=== PATIENT | female | born 1960 | race American Indian/Alaskan Native ===

== ENCOUNTER 2017-02-18 10:42 | Outpatient (CLI) | payer MEDICARE | END 2017-02-18 10:43 | disposition home or self-care (01) | LOC: WOUND 10:42 | PROVIDERS: ATTEND Podiatrist | DX: S31.109D Unspecified open wound of abdominal wall, unspecified quadrant without penetration into peritoneal cavity, subsequent encounter (principal); E66.9 Obesity, unspecified; L30.4 Erythema intertrigo; I10 Essential (primary) hypertension; Z90.710 Acquired absence of both cervix and uterus; X58.XXXD Exposure to other specified factors, subsequent encounter | CPT/HCPCS: 99214; G0463 ==

== ENCOUNTER 2017-09-19 11:58 | Outpatient (CLI) | payer MEDICARE ==
[2017-09-19 12:21] LABS: Hematocrit 41.2 % (30.3-42.9); Hemoglobin 13.5 gm/dl (10.1-14.3); Mean Corpuscular HGB Conc 33 % (30-34); Mean Corpuscular Hemoglobin 29 pg (28-32); Mean Corpuscular Volume 88 fl (79-97); Platelet Count 245 K/mm3 (140-440); Red Blood Count 4.69 M/mm3 (3.65-5.03); Red Cell Distribution Width 15.4 % (13.2-15.2)
[2017-09-19 12:41] LABS: Alanine Aminotransferase 14 units/L (7-56); Albumin 3.8 g/dL (3.9-5); BUN/Creatinine Ratio 12; Blood Urea Nitrogen 7 mg/dL (7-17); Calcium 9.3 mg/dL (8.4-10.2); Hemolysis Index 4
[2017-09-19 12:48] LABS: Free T4 (Free Thyroxine) 1.17 ng/dL (0.76-1.46)
== END 2017-09-19 11:59 | disposition home or self-care (01) ==
LOC: LAB 11:58
PROVIDERS: ATTEND General Practice
DX: I10 Essential (primary) hypertension (principal); E66.3 Overweight; Z87.891 Personal history of nicotine dependence
CPT/HCPCS: 36415; 80053; 84439; 84443; 85027

== ENCOUNTER 2017-12-13 10:36 | Outpatient (CLI) | payer MEDICARE ==
[2017-12-13] MEDS ORDERED: XYLOCAINE TOPICAL 4% TP ONE (10:45)
[2017-12-13] MEDS ORDERED: XYLOCAINE TOPICAL 2% 30ML TP ONE (10:47)
== END 2017-12-13 10:37 | disposition home or self-care (01) ==
LOC: WOUND 10:36
PROVIDERS: ATTEND Surgery
DX: L89.152 Pressure ulcer of sacral region, stage 2 (principal); L30.4 Erythema intertrigo; E66.9 Obesity, unspecified; I10 Essential (primary) hypertension; Z68.42 Body mass index [BMI] 45.0-49.9, adult; Z90.710 Acquired absence of both cervix and uterus
CPT/HCPCS: 99215; G0463

== ENCOUNTER 2018-01-31 11:17 | Outpatient (CLI) | payer MEDICARE ==
[2018-01-31] MEDS ORDERED: XYLOCAINE TOPICAL 4% TP ONE (12:11)
[2018-02-01] MEDS ORDERED: XYLOCAINE TOPICAL 4% TP ONE (07:44)
== END 2018-01-31 11:18 | disposition home or self-care (01) ==
LOC: WOUND 11:17
PROVIDERS: ATTEND Surgery
DX: L02.211 Cutaneous abscess of abdominal wall (principal); I10 Essential (primary) hypertension; Z90.710 Acquired absence of both cervix and uterus
CPT/HCPCS: 99205; 99215; G0463

== ENCOUNTER 2018-02-09 10:33 | Outpatient (CLI) | payer MEDICARE | END 2018-02-09 10:34 | disposition home or self-care (01) | LOC: WOUND 10:33 | PROVIDERS: ATTEND Surgery | DX: L02.211 Cutaneous abscess of abdominal wall (principal); I10 Essential (primary) hypertension; Z90.710 Acquired absence of both cervix and uterus ==

== ENCOUNTER 2018-02-16 10:39 | Outpatient (CLI) | payer MEDICARE ==
[2018-02-16] MEDS ORDERED: XYLOCAINE TOPICAL 4% TP ONE ×2 (10:48→10:58)
== END 2018-02-16 10:40 | disposition home or self-care (01) ==
LOC: WOUND 10:39
PROVIDERS: ATTEND Surgery
DX: L02.211 Cutaneous abscess of abdominal wall (principal); I10 Essential (primary) hypertension; Z90.710 Acquired absence of both cervix and uterus

== ENCOUNTER 2018-02-23 10:56 | Outpatient (CLI) | payer MEDICARE ==
[2018-02-23] MEDS ORDERED: XYLOCAINE TOPICAL 4% TP ONE ×2 (11:05→11:16)
== END 2018-02-23 10:57 | disposition home or self-care (01) ==
LOC: WOUND 10:56
PROVIDERS: ATTEND Surgery
DX: L02.211 Cutaneous abscess of abdominal wall (principal); I10 Essential (primary) hypertension; Z90.710 Acquired absence of both cervix and uterus

== ENCOUNTER 2019-03-27 15:25 | Outpatient (CLI) | payer MEDICARE ==
--- NOTE | 2019-03-27 16:37 | Ultrasound Report ---
COMPLETE RIGHT BREAST ULTRASOUND HISTORY: History of left breast cancer status post mastectomy. 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 COMPARISON: 04/04/2018 FINDINGS: Complete sonographic evaluation including imaging of the four quadrants and subareolar aspe ct of the right breast demonstrates no solid mass or suspicious shadowing. A densely shadowing calcif ied mass at 9:00 7 cm from the nipple correlates with focal described to be at 8:00 4 cm from the nip ple on the last exam. It measures 7 x 6 x 5 mm compared to 1 cm on the last exam. Several subcentim eter benign cysts versus lymph nodes at 10:00 9 cm from the nipple, 1:00 3 cm from the nipple and at 12:00 5 cm from the nipple. IMPRESSION: No suspicious finding. Benign cysts versus lymph nodes and a benign heavily calcified mas s at 8-9 o'clock. Recommend global breast ultrasound in one year. BIRADS 2: Benign Signer Name: Gavin Clay MD Signed: 03/27/2019 4:33 PM Workstation Name: [id number]
== END 2019-03-27 15:26 | disposition home or self-care (01) ==
LOC: SPVWC 15:25
PROVIDERS: ATTEND Surgery
DX: C50.312 Malignant neoplasm of lower-inner quadrant of left female breast (principal)

== ENCOUNTER 2019-05-06 18:28 | Emergency (ER) | payer MEDICARE ==
[2019-05-06] MEDS ORDERED: IBUPROFEN 800 MG TAB PO ONE (18:58)
[2019-05-06] MEDS ORDERED: oxyCODONE /ACETAMINOPHEN 5-325MG TAB PO ONE (18:58)
--- NOTE | 2019-05-06 20:04 | XRay Report ---
LUMBAR SPINE 2 VIEWS INDICATION / CLINICAL INFORMATION: worsening back pain hx breast CA. COMPARISON: None available. FINDINGS: No fracture is identified. No focal intraosseous lesion is appreciated within limitations of radiogra phy. There is severe narrowing of the L5-S1 intervertebral disc space, while the other visualized dis c spaces are relatively well-preserved. A large anterior disc osteophyte complex is present at the fredy mbosacral junction. There may be mild retrolisthesis of L5 over S1. Otherwise lumbar alignment is unr emarkable. Visualized paraspinal soft tissues are unremarkable. Signer Name: Gregory Calle MD Signed: 05/06/2019 8:00 PM Workstation Name: [id number]
[2019-05-06 20:06] LABS: Basophils % (Auto) 0.4 % (0.0-1.8); Eosinophils % (Auto) 0.5 % (0.0-4.3); Hematocrit 40.5 % (30.3-42.9); Hemoglobin 13.3 gm/dl (10.1-14.3); Lymphocytes # (Auto) 1.1 K/mm3 (1.2-5.4); Lymphocytes % (Auto) 16.9 % (13.4-35.0); Mean Corpuscular HGB Conc 33 % (30-34); Mean Corpuscular Volume 89 fl (79-97); Monocytes # (Auto) 0.4 K/mm3 (0.0-0.8); Monocytes % (Auto) 5.9 % (0.0-7.3); Platelet Count 201 K/mm3 (140-440); Red Blood Count 4.56 M/mm3 (3.65-5.03); Red Cell Distribution Width 16.7 % (13.2-15.2)
[2019-05-06 20:26] LABS: BUN/Creatinine Ratio 13; Blood Urea Nitrogen 8 mg/dL (7-17); Calcium 9.3 mg/dL (8.4-10.2); Hemolysis Index 6
--- NOTE | 2019-05-06 22:58 | Vascular Lab Report ---
DUPLEX DOPPLER LOWER EXTREMITY VEINS, RIGHT INDICATION: Right lower extremity pain. TECHNIQUE: Duplex doppler imaging was performed through the veins of the right lower extremity using venous comp ression and other maneuvers. COMPARISON: No relevant prior imaging study available. FINDINGS: Common Femoral vein: Negative. Superficial Femoral vein: Negative. Popliteal vein: Negative. Calf veins: Negative. Additional findings: None. IMPRESSION: 1. No sonographic evidence for DVT in the right lower extremity. Signer Name: Sunday Moura MD Signed: 05/06/2019 10:53 PM Workstation Name: [id number]
--- NOTE | 2019-05-06 23:27 | Emergency Department Report ---
ED General Adult HPI - General Chief complaint: Back Pain/Injury Stated complaint: BACK PAIN/LEG Time Seen by Provider: 05/06/19 18:50 Source: patient Mode of arrival: Stretcher Limitations: Physical Limitation - History of Present Illness Initial comments: Patient is a 58-year-old female who is presenting with lower back pain and pain in her right lower extremity. Patient has a history of left breast cancer status post mastectomy as well as chronic lower back pain and inability to walk secondary to an accident she had several years ago. Patient has decreased sensation to the left side. Patient has a history of spinal stenosis but does not have a orthopedic physician that she sees currently. Patient states the low back pain is chronic however is worsened over the last 2- 3 days. Patient states the pain is 8 out of 10 in severity. Patient states there is pain in the right lower extremity. She denies any swelling. Patient denies trauma. Patient's motor sensory functions are at baseline. Patient denies urinary retention or fecal incontinence. Patient was seen at [facility] approximately a week ago secondary to a cough and possible bronchitis. Patient states she has improved since that time. Patient states she is eating and drinking well but has a dry mouth. Severity scale (0 -10): 4 - Related Data Home Medications Medication Instructions Recorded Confirmed Last Taken Zolpidem [Ambien] 2 tab PO PRN PRN 11/26/13 07/12/18 01/18/18 amLODIPine [Norvasc] 5 mg PO DAILY 11/26/13 07/12/18 06/14/18 09:00 Previous Rx's Medication Instructions Recorded Last Taken Type HYDROcodone/APAP 7.5-325 [[place] 1 each PO Q6HR PRN #30 tablet 06/22/18 01/23/18 Rx 7.5/325] Sulfamethoxazole/Trimethoprim 1 each PO BID 10 Days #20 tablet 07/13/18 Unknown Rx [Bactrim DS TAB] traMADoL [Ultram] 50 mg PO Q6HR PRN #30 tablet 07/13/18 Unknown Rx Ciprofloxacin HCl [Ciprofloxacin 500 mg PO Q12HR #14 tab 05/06/19 Unknown Rx TAB] HYDROcodone/APAP 5-325 [[place] 1 each PO Q6HR PRN #14 tablet 05/06/19 Unknown Rx 5/325] Ibuprofen [Motrin 600 MG tab] 600 mg PO Q8H PRN #20 tablet 05/06/19 Unknown Rx methOCARBAMOL [Robaxin TAB] 500 mg PO Q6H PRN #14 tablet 05/06/19 Unknown Rx Allergies Allergy/AdvReac Type Severity Reaction Status Date / Time cephalexin monohydrate Allergy Hives Verified 11/26/13 10:25 [From Keflex] ED Review of Systems ROS: Stated complaint: BACK PAIN/LEG Other details as noted in HPI Comment: All other systems reviewed and negative ED Past Medical Hx - Past Medical History Previous Medical History?: Yes Hx Hypertension: Yes (X 1 YR) Hx Diabetes: No Hx Sickle Cell Disease: No (SC TRAIT ONLY) Hx Asthma: No Hx HIV: No - Surgical History Past Surgical History?: Yes Hx Breast Surgery: Yes (LEFT BREAST BX) - Social History Smoking Status: Former Smoker Substance Use Type: None - Medications Home Medications: Home Medications Medication Instructions Recorded Confirmed Last Taken Type Zolpidem [Ambien] 2 tab PO PRN PRN 11/26/13 07/12/18 01/18/18 History amLODIPine [Norvasc] 5 mg PO DAILY 11/26/13 07/12/18 06/14/18 09:00 History HYDROcodone/APAP 7.5-325 [[place] 1 each PO Q6HR PRN #30 tablet 06/22/18 07/12/18 01/23/18 Rx 7.5/325] Sulfamethoxazole/Trimethoprim 1 each PO BID 10 Days #20 tablet 07/13/18 Unknown Rx [Bactrim DS TAB] traMADoL [Ultram] 50 mg PO Q6HR PRN #30 tablet 07/13/18 Unknown Rx Ciprofloxacin HCl [Ciprofloxacin 500 mg PO Q12HR #14 tab 05/06/19 Unknown Rx TAB] HYDROcodone/APAP 5-325 [[place] 1 each PO Q6HR PRN #14 tablet 05/06/19 Unknown Rx 5/325] Ibuprofen [Motrin 600 MG tab] 600 mg PO Q8H PRN #20 tablet 05/06/19 Unknown Rx methOCARBAMOL [Robaxin TAB] 500 mg PO Q6H PRN #14 tablet 05/06/19 Unknown Rx ED Physical Exam - General Limitations: Physical Limitation General appearance: alert, in no apparent distress - Head Head exam: Present: atraumatic, normocephalic - Eye Eye exam: Present: normal appearance, PERRL, EOMI - ENT ENT exam: Present: mucous membranes dry - Neck Neck exam: Present: normal inspection - Respiratory Respiratory exam: Present: normal lung sounds bilaterally. Absent: respiratory distress, wheezes, rales, rhonchi - Cardiovascular Cardiovascular Exam: Present: regular rate, normal rhythm, normal heart sounds. Absent: systolic murmur, diastolic murmur, rubs, gallop - GI/Abdominal GI/Abdominal exam: Present: soft, normal bowel sounds. Absent: distended, tenderness, guarding, rebound - Extremities Exam Extremities exam: Present: normal inspection, tenderness (RLE), calf tenderness - Back Exam Back exam: Present: normal inspection - Neurological Exam Neurological exam: Present: alert, oriented X3 - Psychiatric Psychiatric exam: Present: normal affect, normal mood - Skin Skin exam: Present: warm, dry, intact, normal color. Absent: rash ED Course Vital Signs 05/06/19 05/06/19 05/06/19 19:42 19:55 19:57 Temperature 98.3 F Pulse Rate 114 H Respiratory 22 16 16 Rate Blood Pressure 149/53 Blood Pressure 149/53 [Right] O2 Sat by Pulse 92 Oximetry ED Medical Decision Making - Lab Data Result diagrams: 05/06/19 19:41 05/06/19 19:41 - Radiology Data LUMBAR SPINE 2 VIEWS INDICATION / CLINICAL INFORMATION: worsening back pain hx breast CA. COMPARISON: None available. FINDINGS: No fracture is identified. No focal intraosseous lesion is appreciated within limitations of radiography. There is severe narrowing of the L5-S1 intervertebral disc space, while the other visualized disc spaces are relatively well-preserved. A large anterior disc osteophyte complex is present at the lumbosacral junction. There may be mild retrolisthesis of L5 over S1. Otherwise lumbar alignment is unremarkable. Visualized paraspinal soft tissues are unremarkable. Signer Name: Gregory Calle MD Signed: 05/06/2019 8:00 PM Workstation Name: [id number] DUPLEX DOPPLER LOWER EXTREMITY VEINS, RIGHT INDICATION: Right lower extremity pain. TECHNIQUE: Duplex doppler imaging was performed through the veins of the right lower extremity using venous compression and other maneuvers. COMPARISON: No relevant prior imaging study available. FINDINGS: Common Femoral vein: Negative. Superficial Femoral vein: Negative. Popliteal vein: Negative. Calf veins: Negative. Additional findings: None. IMPRESSION: 1. No sonographic evidence for DVT in the right lower extremity. Signer Name: Sunday Moura MD Signed: 05/06/2019 10:53 PM Workstation Name: [email or web address] - Medical Decision Making Patient is a 58-year-old Female presented with lower back pain is worsened from her baseline as well as right lower extremity pain as far as the patient's right lower extremity pain is most concerned for DVT. Patient is immobile and doesn't history of cancer. DVT studies are negative at this time. Patient had a x-ray of the lumbar spine as well to rule out pathological fracture. X-ray does confirm the patient's spinal stenosis but no acute process seen. Patient clinically does not have cauda equina. Patient urinated before she arrived. She was cathed and very small amounts of urine were able to be drained. The nurse stated it was dark in color and did have a foul odor. Patient be started on antibiotics empirically. Patient also given a muscle relaxant for her lower back discomfort and the patient will follow-up with orthopedics regarding her spinal stenosis. Critical care attestation.: If time is entered above; I have spent that time in minutes in the direct care of this critically ill patient, excluding procedure time. ED Disposition Clinical Impression: Spinal stenosis Qualifiers: Spinal region: lumbar Neurogenic claudication status: with neurogenic claudication Qualified Code(s): M48.062 - Spinal stenosis, lumbar region with neurogenic claudication Sciatica Qualifiers: Laterality: right Qualified Code(s): M54.31 - Sciatica, right side UTI (urinary tract infection) Qualifiers: Urinary tract infection type: site unspecified Hematuria presence: without hematuria Qualified Code(s): N39.0 - Urinary tract infection, site not specified Disposition: DC-01 TO HOME OR SELFCARE Is pt being admited?: No Does the pt Need Aspirin: No Condition: Stable Instructions: Lumbar Radiculopathy (ED), Arthralgia (ED) Referrals: DIANA CARDOZO MD [Staff Physician] - 3-5 Days PRIMARY CAREMD [Primary Care Provider] - 3-5 Days Time of Disposition: 23:29
[2019-05-07 01:35] VITALS: BP 128/68
== END 2019-05-07 05:01 | disposition home or self-care (01) ==
LOC: ED 18:28
DX: M48.00 Spinal stenosis, site unspecified (principal); M54.30 Sciatica, unspecified side; N39.0 Urinary tract infection, site not specified; I10 Essential (primary) hypertension; Z98.890 Other specified postprocedural states; Z79.899 Other long term (current) drug therapy; Z88.1 Allergy status to other antibiotic agents
CPT/HCPCS: 36415; 72100; 80048; 85025

== ENCOUNTER 2019-05-19 01:43 | Inpatient (IN) | payer MEDICARE ==
[2019-05-19] MEDS ORDERED: SODIUM CHLORIDE 0.9% 1000 ML IV SOLN IV ONE (02:26)
--- NOTE | 2019-05-19 02:32 | Emergency Department Report ---
ED General Adult HPI - General Chief complaint: Dental/Oral Stated complaint: ORAL INFECTION Time Seen by Provider: 05/19/19 02:09 Source: patient, EMS (EMS records not available at time of chart dictation.), RN notes reviewed, old records reviewed Mode of arrival: Wheelchair Limitations: Physical Limitation - History of Present Illness Initial comments: The patient is a 58-year-old female. She has a history of lower extremity paraplegia and is basically bedbound. She presents to the emergency room with a complaint of chronic dry mouth, and irritated lips and mouth. She denies headache, neck pain, chest pain, abdominal pain, shortness of breath, urinary symptoms, bright red blood per rectum. Apparently she was recently admitted to [facility], May 10 through May 17 of this year. She is not quite sure why she was admitted. -: Gradual, days(s) Location: mouth Radiation: non-radiation Severity scale (0 -10): 7 Quality: aching Consistency: constant Improves with: rest Worsens with: eating - Related Data Home Medications Medication Instructions Recorded Confirmed Last Taken Albuterol Sulfate [Proair 2 puff IH Q6HR PRN 05/19/19 05/19/19 Unknown Respiclick] Budesonide/Formoterol Fumarate 2 puff IH BID 05/19/19 05/19/19 Unknown [Symbicort 160-4.5 Mcg Inhaler] Diflucan TAB 100 mg PO DAILY 05/19/19 05/19/19 Unknown Nystatin [Nystatin SUSP] 10 ml PO QID 05/19/19 05/19/19 Unknown Pantoprazole [Protonix] 40 mg PO QDAY 05/19/19 05/19/19 Unknown levoFLOXacin [Levaquin] 750 mg PO QDAY 05/19/19 05/19/19 Unknown Allergies Allergy/AdvReac Type Severity Reaction Status Date / Time cephalexin monohydrate Allergy Hives Verified 11/26/13 10:25 [From Keflex] ED Review of Systems ROS: Stated complaint: ORAL INFECTION Other details as noted in HPI Constitutional: denies: fever, malaise ENT: other. denies: congestion Respiratory: denies: cough, shortness of breath, SOB with exertion, wheezing Cardiovascular: denies: chest pain, edema Gastrointestinal: denies: abdominal pain, vomiting Genitourinary: denies: dysuria Musculoskeletal: denies: back pain Neurological: weakness (chronic) Hematological/Lymphatic: denies: easy bleeding ED Past Medical Hx - Past Medical History Previous Medical History?: Yes Hx Hypertension: Yes (X 1 YR) Hx Diabetes: No Hx Sickle Cell Disease: No (SC TRAIT ONLY) Hx Asthma: No Hx HIV: No - Surgical History Past Surgical History?: Yes Hx Breast Surgery: Yes (LEFT BREAST BX) - Social History Smoking Status: Never Smoker Substance Use Type: None - Medications Home Medications: Home Medications Medication Instructions Recorded Confirmed Last Taken Type Albuterol Sulfate [Proair 2 puff IH Q6HR PRN 05/19/19 05/19/19 Unknown History Respiclick] Budesonide/Formoterol Fumarate 2 puff IH BID 05/19/19 05/19/19 Unknown History [Symbicort 160-4.5 Mcg Inhaler] Diflucan TAB 100 mg PO DAILY 05/19/19 05/19/19 Unknown History Nystatin [Nystatin SUSP] 10 ml PO QID 05/19/19 05/19/19 Unknown History Pantoprazole [Protonix] 40 mg PO QDAY 05/19/19 05/19/19 Unknown History levoFLOXacin [Levaquin] 750 mg PO QDAY 05/19/19 05/19/19 Unknown History ED Physical Exam - General Limitations: Physical Limitation General appearance: alert, obese - Head Head exam: Present: atraumatic, normocephalic - Eye Eye exam: Present: normal appearance, EOMI. Absent: nystagmus - ENT ENT exam: Present: normal exam, mucous membranes dry, normal external ear exam, other (patient speaking in full sentences. There is no stridor or dysphonia. Dry mucous membranes noted. No obvious thrush is noted.) - Neck Neck exam: Present: normal inspection, full ROM. Absent: tenderness, meningismus - Respiratory Respiratory exam: Present: normal lung sounds bilaterally. Absent: respiratory distress - Cardiovascular Cardiovascular Exam: Present: normal rhythm, tachycardia, normal heart sounds. Absent: systolic murmur, diastolic murmur, rubs, gallop - GI/Abdominal GI/Abdominal exam: Present: soft. Absent: distended, tenderness, guarding, rebound, rigid, pulsatile mass - Extremities Exam Extremities exam: Present: normal inspection, other (2+ pulses noted in the bilateral upper and lower extremities. The pelvis is stable. There is no long bony tenderness. The muscular compartments are soft. There is no redness, pus, streaking or erythema.). Absent: pedal edema, calf tenderness - Back Exam Back exam: Present: normal inspection. Absent: tenderness, CVA tenderness (R), CVA tenderness (L), paraspinal tenderness, vertebral tenderness - Neurological Exam Neurological exam: Present: alert, motor sensory deficit (chronic weakness in the bilateral lower extremities. There is no facial droop. The tongue is midline. Speaking in full sentences. There is no stridor or dysphonia. Sensation intact to light touch bilateral upper extremities) - Psychiatric Psychiatric exam: Present: anxious - Skin Skin exam: Present: warm, dry, intact, normal color. Absent: rash ED Course Vital Signs 05/19/19 05/19/19 05/19/19 02:06 02:15 02:25 Temperature 98.8 F Pulse Rate 123 H 127 H Respiratory 25 H 28 H Rate Blood Pressure 135/111 124/60 Blood Pressure 135/111 [Left] O2 Sat by Pulse 88 85 92 Oximetry 05/19/19 05/19/19 05/19/19 02:31 02:45 03:00 Temperature Pulse Rate 121 H 122 H 117 H Respiratory 29 H 22 26 H Rate Blood Pressure 124/60 135/111 135/111 Blood Pressure [Left] O2 Sat by Pulse 89 87 92 Oximetry 05/19/19 05/19/19 05/19/19 03:15 03:31 03:45 Temperature Pulse Rate 118 H 119 H 119 H Respiratory 31 H 30 H 26 H Rate Blood Pressure 135/111 135/111 135/111 Blood Pressure [Left] O2 Sat by Pulse 92 92 91 Oximetry 05/19/19 05/19/19 04:01 04:15 Temperature Pulse Rate 117 H 118 H Respiratory 29 H 35 H Rate Blood Pressure 135/111 135/111 Blood Pressure [Left] O2 Sat by Pulse 92 87 Oximetry - Reevaluation(s) Reevaluation #1: 05/19/19 04:31 Differential diagnosis, including but not limited to: Dehydration, viral stomatitis, pneumonia, pulmonary embolism Assessment and plan: 58-year-old female with complaint of dry mucous membranes. She is hypoxic, and quite tachycardic without corroborating symptoms. As per verbal report from nursing team, she may have been hypotensive in the field. Code sepsis called overhead, although I have a high suspicion for a pulmonary embolism. D-dimer elevated, heparin drip ordered. Please note that the patient has had a significant delay in acquisition of emergent imaging studies secondary to the lab not resolving her chemistry and a prompt fashion. Numerous phone calls made to the chemistry lab to obtain basic metabolic panel results. Arterial blood gas shows hypoxemic respiratory failure, supplemental oxygen ordered. Reevaluation #2: 05/19/19 05:45 ct shows no PE BUT large pleural effusion heparin discontinued levaquin ordered will admit to hospital service for acute hypoxemic respiratory failure, likely secondary to left sided pleural effusion Dr Krissy Larios to admit patient and family informed 05/19/19 05:47 Reevaluation #3: 05/19/19 06:01 patient and family amenable to admission IV fluids dosed off ideal body weight calculations ED Medical Decision Making - Lab Data Result diagrams: 05/19/19 04:36 05/19/19 02:52 Vital Signs 05/19/19 05/19/19 02:06 02:25 Temperature 98.8 F Pulse Rate 123 H Respiratory 25 H Rate Blood Pressure 135/111 Blood Pressure 135/111 [Left] O2 Sat by Pulse 88 92 Oximetry - EKG Data -: EKG Interpreted by Pr EKG shows normal: sinus rhythm Rate: tachycardia - EKG Data 05/19/19 04:32 The EKG shows a sinus tachycardia, 116 bpm, QTC prolonged, left ventricular hypertrophy, abnormal EKG, not consistent with stemi - Radiology Data Radiology results: report reviewed, image reviewed Print Report Referring Physician: KARLA ALEXANDER Patient Name: NOE ESCOBAR Date of : 1960 Sex: Female Report Date: 2019-05-19 Report Status: Finalized Findings [facility] [address] [place] [address] XRay Report Signed Patient: NOE ESCOBAR MR#: [id number] : 1960 Acct:[id number] Age/Sex: 58 / F ADM Date: 05/19/19 Loc: ED Attending Dr: Ordering Physician: KARLA ALEXANDER MD Date of Service: 05/19/19 Procedure(s): XR chest 1V ap Accession Number(s): [id number] cc: KARLA ALEXANDER MD Fluoro Time In Minutes: CHEST 1 VIEW INDICATION: weak hypoxic. COMPARISON: 06/19/2018 FINDINGS: SUPPORT DEVICES: None. HEART / MEDIASTINUM: No significant abnormality. LUNGS / PLEURA: No significant pulmonary or pleural abnormality. No pneumothorax. ADDITIONAL FINDINGS: IMPRESSION: 1. No acute findings. Signer Name: Basim Foster MD Signed: 05/19/2019 2:51 AM Workstation Name: [id number] Transcribed By: CLIFTON Dictated By: Basim Foster MD Electronically Authenticated By: Basim Foster MD Signed Date/Time: 05/19/19250 DD/ 9 Critical Care Time: Yes Critical care time in (mins) excluding proc time.: 45 Critical care attestation.: If time is entered above; I have spent that time in minutes in the direct care of this critically ill patient, excluding procedure time. ED Disposition Clinical Impression: Acute hypoxemic respiratory failure, Pleural effusion, Dry mouth Disposition: -09 OP ADMIT IP TO THIS HOSP Is pt being admited?: Yes Condition: Fair Referrals: PRIMARY CARE, [Primary Care Provider] - 3-5 Days
--- NOTE | 2019-05-19 02:55 | XRay Report ---
CHEST 1 VIEW INDICATION: weak hypoxic. COMPARISON: 06/19/2018 FINDINGS: SUPPORT DEVICES: None. HEART / MEDIASTINUM: No significant abnormality. LUNGS / PLEURA: No significant pulmonary or pleural abnormality. No pneumothorax. ADDITIONAL FINDINGS: IMPRESSION: 1. No acute findings. Signer Name: Basim Foster MD Signed: 05/19/2019 2:51 AM Workstation Name: [id number]
[2019-05-19 03:27] LABS: Basophils % (Auto) 0.4 % (0.0-1.8); Eosinophils % (Auto) 0.3 % (0.0-4.3); Hematocrit 44.6 % (30.3-42.9); Hemoglobin 14.5 gm/dl (10.1-14.3); Lymphocytes # (Auto) 0.9 K/mm3 (1.2-5.4); Lymphocytes % (Auto) 10.2 % (13.4-35.0); Mean Corpuscular HGB Conc 33 % (30-34); Mean Corpuscular Volume 89 fl (79-97); Monocytes # (Auto) 0.7 K/mm3 (0.0-0.8); Monocytes % (Auto) 7.1 % (0.0-7.3); Platelet Count 157 K/mm3 (140-440); Red Blood Count 5.04 M/mm3 (3.65-5.03); Red Cell Distribution Width 17.9 % (13.2-15.2)
[2019-05-19 03:37] LABS: INR 1.09 (0.87-1.13)
[2019-05-19] MEDS ORDERED: HEPARIN 10,000 UNITS/10 ML VIAL IV ONE (04:25)
[2019-05-19 04:35] LABS: Alanine Aminotransferase 56 units/L (7-56); Albumin 3.9 g/dL (3.9-5); BUN/Creatinine Ratio 46; Blood Urea Nitrogen 41 mg/dL (7-17); Calcium 9.8 mg/dL (8.4-10.2); Hemolysis Index 46
[2019-05-19] MEDS ORDERED: HEPARIN/ 0.45% NACL DRIP 25,000 UNIT/500 ML BAG IV SCH (05:00)
[2019-05-19 05:02] LABS: Hematocrit 41.5 % (30.3-42.9); Hemoglobin 13.6 gm/dl (10.1-14.3)
[2019-05-19 05:27] LABS: Bilirubin,Urine NEG (Negative); Blood,Urine NEG (Negative); Color,Urine Yellow (Yellow); Mucus,Urine FEW /HPF; Protein,Urine <15 mg/dL mg/dL (Negative); RBC,Urine < 1.0 /HPF (0.0-6.0)
--- NOTE | 2019-05-19 05:41 | Cat Scan Report ---
CTA CHEST WITH IV CONTRAST INDICATION / CLINICAL INFORMATION: tachycardia hypoxia + d dimer. TECHNIQUE: Axial CT images were obtained through the chest after injection of IV contrast. 3 plane MIP and/or 3D reconstructions were produced. All CT scans at this location are performed using CT dose reduction f or ALARA by means of automated exposure control. COMPARISON: None available. FINDINGS: PULMONARY ARTERIES: No pulmonary emboli. THORACIC AORTA: No significant abnormality. HEART: No significant abnormality. CORONARY ARTERIES: No significant calcification. PLEURA: Moderate size left pleural effusion is noted No pneumothorax. LYMPH NODES: Difficult to evaluate LUNGS: Multiple nodules are present throughout both lungs largest superior segment right lower lobe m easuring 1.65 cm. Volume loss left lower lobe is present. Bronchovascular markings are prominent both lungs ADDITIONAL FINDINGS: Eventration-elevation right hemidiaphragm UPPER ABDOMEN: Bilateral adrenal glands enlargement SKELETAL STRUCTURES: No significant osseous abnormality. IMPRESSION: 1. No CT evidence for pulmonary embolism. 2. Multiple pulmonary nodules worrisome for metastatic disease 3. Volume loss left lower lobe with associated left pleural effusion 4. Eventration-elevation right hemidiaphragm Signer Name: Basim Foster MD Signed: 05/19/2019 5:37 AM Workstation Name: [id number]
[2019-05-19 05:44] LABS: INR 0.81 (0.87-1.13)
[2019-05-19] MEDS ORDERED: LIDOCAINE VISCOUS 2% 15 ML ORAL LIQD PO ONE (05:49)
[2019-05-19] MEDS ORDERED: ALBUTEROL 2.5 MG/3 ML NEBU IH PRN ×2 (06:02→09:52)
[2019-05-19] MEDS ORDERED: ONDANSETRON 4 MG/2 ML INJ IV PRN (06:02)
[2019-05-19] MEDS ORDERED: ACETAMINOPHEN 325 MG TAB PO PRN (06:02)
[2019-05-19] MEDS ORDERED: SODIUM CHLORIDE 0.9% 1000 ML 1,000 ML IV SCH (06:15)
--- NOTE | 2019-05-19 06:27 | History and Physical Report ---
History of Present Illness Date of examination: 05/19/19 Date of admission: 05/19/2019 Chief complaint: mouth pain, dry mouth, and mouth sore History of present illness: 58-year-old paraplegic -[place] female with history of hypertension, sickle cell trait, spinal stenosis, breast cancer s/p mastectomy with metastatic disease who presents to [facility] ED with complaints of mouth pain for the past 2 days. Patient is present at bedside and has assisted with providing history. Patient states that she has tried using lip moisturizer and mouthwash to help with no relief. Of note patient was admitted to [facility] on 05/10 and discharged on 05/17. During her admission at [facility] patient underwent thoracentesis and was diagnosed with chronic respiratory failure and discharged with home oxygen 2 L nasal cannula continuously. Denies shortness of breath, chest pain,fever, n/v/ diaphoresis, hemoptysis, or hematemesis. Past History Past Medical History: cancer (breast), COPD (on home 02), hypertension, other (Sickle cell, paraplegia) Past Surgical History: mastectomy (Left breast) Social history: Family history: no significant family history Medications and Allergies Allergies Allergy/AdvReac Type Severity Reaction Status Date / Time cephalexin monohydrate Allergy Hives Verified 11/26/13 10:25 [From [facility]] Home Medications Medication Instructions Recorded Confirmed Last Taken Type Albuterol Sulfate [Proair 2 puff IH Q6HR PRN 05/19/19 05/19/19 Unknown History Respiclick] Budesonide/Formoterol Fumarate 2 puff IH BID 05/19/19 05/19/19 Unknown History [Symbicort 160-4.5 Mcg Inhaler] Diflucan TAB 100 mg PO DAILY 05/19/19 05/19/19 Unknown History Nystatin [Nystatin SUSP] 10 ml PO QID 05/19/19 05/19/19 Unknown History Pantoprazole [Protonix] 40 mg PO QDAY 05/19/19 05/19/19 Unknown History levoFLOXacin [Levaquin] 750 mg PO QDAY 05/19/19 05/19/19 Unknown History Active Meds: Active Medications Acetaminophen (Tylenol) 650 mg PO Q4H PRN PRN Reason: Pain MILD(1-3)/Fever >100.5/CARRILLO Albuterol (Proventil) 2.5 mg IH Q3HRT PRN PRN Reason: Shortness Of Breath Budesonide (Pulmicort) 0.5 mg IH Q12HRT [facility] Docusate Sodium (Colace) 100 mg PO BID [facility] Heparin Sodium (Porcine) (Heparin) 5,000 unit SUB-Q Q12HR [facility] Levofloxacin/Dextrose (Levaquin 500mg/100ml) 500 mg in 100 mls @ 100 mls/hr IV ONCE ONE; Protocol Stop: 05/19/19 06:37 Last Admin: 05/19/19 05:59 Dose: 100 mls/hr Documented by: Sodium Chloride (Nacl 0.9% 1000 Ml) 1,000 mls @ 75 mls/hr IV DIRECT TAZ Stop: 05/19/19 12:00 Levofloxacin/Dextrose (Levaquin 500mg/100ml) 500 mg in 100 mls @ 100 mls/hr IV Q24HR [facility]; Protocol Nystatin (Nystatin) 1,000,000 unit PO QID [facility] Ondansetron HCl (Zofran) 4 mg IV Q8H PRN PRN Reason: Nausea And Vomiting Pantoprazole Sodium (Protonix) 40 mg PO QDAY [facility] Sodium Chloride (Sodium Chloride Flush Syringe 10 Ml) 10 ml IV BID [facility] Sodium Chloride (Sodium Chloride Flush Syringe 10 Ml) 10 ml IV PRN PRN PRN Reason: LINE FLUSH Review of Systems All systems: negative Ears, nose, mouth and throat: mouth pain, other (Mild sore) Exam - Physical Exam Narrative exam: Physical exam General appearance: Present: No acute distress, alert and oriented 3, dry cracked lips, paraplegic, adult female - EENT Eyes: Present: PERRL, EOM intact ENT: hearing intact, normal dentition - Neck Neck: Present: supple, normal ROM - Respiratory Respiratory effort: Non-labored, on supplemental oxygen Respiratory: Diminished - Cardiovascular Heart rate: 116 (bpm) Rhythm: Sinus tachycardia Heart Sounds: Present: S1 & S2. Absent: rub, click - Extremities Extremities: no ischemia, pulses intact, - Peripheral Assessment Peripheral Pulses: within normal limits - Abdominal General gastrointestinal: soft, non-tender, normal bowel sounds - Integumentary Integumentary: Present: warm, dry - Musculoskeletal Musculoskeletal: Able to move upper extremities, paraplegic -Neurological Neurological: CN II-XII intact - Psychiatric Psychiatric:cooperative - Constitutional Vitals: Temp Pulse Resp BP Pulse Ox 98.8 F 110 H 20 122/84 96 05/19/19 02:06 05/19/19 06:01 05/19/19 06:01 05/19/19 06:01 05/19/19 06:01 Results - Labs CBC & Chem 7: 05/19/19 04:36 05/19/19 02:52 Labs: Laboratory Last Values WBC 9.2 K/mm3 (4.5-11.0) 05/19/19 02:52 RBC 5.04 M/mm3 (3.65-5.03) H 05/19/19 02:52 Hgb 13.6 gm/dl (10.1-14.3) 05/19/19 04:36 Hct 41.5 % (30.3-42.9) 05/19/19 04:36 MCV 89 fl (79-97) 05/19/19 02:52 MCH 29 pg (28-32) 05/19/19 02:52 MCHC 33 % (30-34) 05/19/19 02:52 RDW 17.9 % (13.2-15.2) H 05/19/19 02:52 Plt Count 134 K/mm3 (140-440) L 05/19/19 04:36 Lymph % (Auto) 10.2 % (13.4-35.0) L 05/19/19 02:52 [place] % (Auto) 7.1 % (0.0-7.3) 05/19/19 02:52 Eos % (Auto) 0.3 % (0.0-4.3) 05/19/19 02:52 Baso % (Auto) 0.4 % (0.0-1.8) 05/19/19 02:52 Lymph # 0.9 K/mm3 (1.2-5.4) L 05/19/19 02:52 [place] # 0.7 K/mm3 (0.0-0.8) 05/19/19 02:52 Eos # 0.0 K/mm3 (0.0-0.4) 05/19/19 02:52 Baso # 0.0 K/mm3 (0.0-0.1) 05/19/19 02:52 Seg Neutrophils % 82.0 % (40.0-70.0) H 05/19/19 02:52 Seg Neutrophils # 7.5 K/mm3 (1.8-7.7) 05/19/19 02:52 PT 11.2 Sec. (12.2-14.9) L 05/19/19 04:36 INR 0.81 (0.87-1.13) L 05/19/19 04:36 APTT 20.0 Sec. (24.2-36.6) L 05/19/19 04:36 D-Dimer 4442.30 ng/mlDDU (0-234) H 05/19/19 02:52 POC ABG pH 7.450 (7.35-7.45) 05/19/19 03:10 POC ABG pCO2 38.7 (35-45) 05/19/19 03:10 POC ABG pO2 51 (80-105) L 05/19/19 03:10 POC ABG HCO3 26.9 (22-26 mml/L) 05/19/19 03:10 POC ABG Total CO2 28 (23-27mmol/L) 05/19/19 03:10 POC ABG O2 Sat 88 05/19/19 03:10 POC ABG Base Excess 3 ((-2) - (+3)mmol/L) 05/19/19 03:10 FiO2 21 % 05/19/19 03:10 Sodium 138 mmol/L (137-145) 05/19/19 02:52 Potassium 4.4 mmol/L (3.6-5.0) 05/19/19 02:52 Chloride 97.8 mmol/L (98-107) L 05/19/19 02:52 Carbon Dioxide 21 mmol/L (22-30) L 05/19/19 02:52 Anion Gap 24 mmol/L 05/19/19 02:52 BUN 41 mg/dL (7-17) H 05/19/19 02:52 Creatinine 0.9 mg/dL (0.7-1.2) 05/19/19 02:52 Estimated GFR > 60 ml/min 05/19/19 02:52 BUN/Creatinine Ratio 46 % 05/19/19 02:52 Glucose 184 mg/dL (65-100) H 05/19/19 02:52 Lactic Acid 2.50 mmol/L (0.7-2.0) H* 05/19/19 04:23 Calcium 9.8 mg/dL (8.4-10.2) 05/19/19 02:52 Magnesium 2.90 mg/dL (1.7-2.3) H 05/19/19 02:52 Total Bilirubin 1.00 mg/dL (0.1-1.2) 05/19/19 02:52 AST 35 units/L (5-40) 05/19/19 02:52 ALT 56 units/L (7-56) 05/19/19 02:52 Alkaline Phosphatase 165 units/L (35-129) H 05/19/19 02:52 Total Creatine Kinase 99 units/L (30-135) 05/19/19 02:52 Troponin T < 0.010 ng/mL (0.00-0.029) 05/19/19 02:52 Total Protein 7.9 g/dL (6.3-8.2) 05/19/19 02:52 Albumin 3.9 g/dL (3.9-5) 05/19/19 02:52 Albumin/Globulin Ratio 1.0 % 05/19/19 02:52 TSH 2.600 mlU/mL (0.270-4.200) 05/19/19 02:52 Urine Color Yellow (Yellow) 05/19/19 04:15 Urine Turbidity Clear (Clear) 05/19/19 04:15 Urine pH 5.0 (5.0-7.0) 05/19/19 04:15 Ur Specific [place] 1.012 (1.003-1.030) 05/19/19 04:15 Urine Protein <15 mg/dl mg/dL (Negative) 05/19/19 04:15 Urine Glucose (UA) Neg mg/dL (Negative) 05/19/19 04:15 Urine Ketones Neg mg/dL (Negative) 05/19/19 04:15 Urine Blood Neg (Negative) 05/19/19 04:15 Urine Nitrite Neg (Negative) 05/19/19 04:15 Urine Bilirubin Neg (Negative) 05/19/19 04:15 Urine Urobilinogen 2.0 mg/dL (<2.0) 05/19/19 04:15 Ur Leukocyte Esterase Neg (Negative) 05/19/19 04:15 Urine WBC (Auto) 1.0 /HPF (0.0-6.0) 05/19/19 04:15 Urine RBC (Auto) < 1.0 /HPF (0.0-6.0) 05/19/19 04:15 Urine Mucus Few /HPF 05/19/19 04:15 - Imaging and Cardiology Imaging and Cardiology: CT Angio Chest: FINDINGS: PULMONARY ARTERIES: No pulmonary emboli. THORACIC AORTA: No significant abnormality. HEART: No significant abnormality. CORONARY ARTERIES: No significant calcification. PLEURA: Moderate size left pleural effusion is noted No pneumothorax. LYMPH NODES: Difficult to evaluate LUNGS: Multiple nodules are present throughout both lungs largest superior segment right lower lobe measuring 1.65 cm. Volume loss left lower lobe is present. Bronchovascular markings are prominent both lungs ADDITIONAL FINDINGS: Eventration-elevation right hemidiaphragm UPPER ABDOMEN: Bilateral adrenal glands enlargement SKELETAL STRUCTURES: No significant osseous abnormality. Impression: 1. No CT evidence for pulmonary embolism 2. Multiple pulmonary nodules worrisome for metastatic disease 3. Volume loss left lower lobe with associated left pleural effusion 4. Even titration-elevation right hemidiaphragm CXR: FINDINGS: : None HEART / MEDIASTINUM: No significant abnormality LUNGS / PLEURA: No significant pulmonary or pleural abnormality. No pneumothorax ADDITIONAL FINDINGS: IMPRESSION: 1. No acute findings. Assessment and Plan Assessment and plan: 58-year-old paraplegic -[place] female with history of hypertension, sickle cell trait, spinal stenosis, breast cancer s/p mastectomy with metastatic disease who presents to [facility] ED with complaints of mouth pain for the past 2 days. SIRS -Heart rate >90 -RR>20 -SpO2 <97 -Cultures pending -On IV ABX Left pleural effusion -Seen on today's CT scan -Multiple pulmonary nodule seen on CT scan -History of pleural effusion -History of metastatic disease -Pulmonary consulted Lactic acidosis -Lactic acid on admission 2.5 -on IV Abx -on IVF -Continue to monitor Mouth pain -c/o of dry mouth and mouth pain -Continue nystatin -Continue supportive care -On IV ABX Chronic hypoxic respiratory failure -Baseline home oxygen requirements 2L continuously -Currently on supplemental 2L NC with saturation of 96% -ABG 7.45/38.7/51/26.9 -Monitor saturations -Continue supplemental oxygen wean as tolerated Elevated d-dimer -at 4442.30 -CT angio Chest negative for PE COPD -Schedule Pulmicort, albuterol as needed DVT PPX -On Heparin Advance Directives: No VTE prophylaxis?: Chemical Plan of care discussed with patient/family: Yes
[2019-05-19] MEDS: ARFORMOTEROL 15 MCG/2 ML NEBU IH SCH ×2 (08:44→20:48)
[2019-05-19] MEDS: BUDESONIDE 0.5 MG/2 ML NEBU IH SCH ×2 (08:44→20:49)
--- NOTE | 2019-05-19 09:29 | Event Note ---
Date: 05/19/19 Pt seen and examined. Has severe oralpharyngeal thrush in addition and unable to swallow. Said that Nystatin switch and swallow burn her and will not take it including oral diflucan. Will consider iv diflucan, Consult ID and continue with present Mx
[2019-05-19] MEDS ORDERED: NON-FORMULARY EACH (Albuterol Sulfate [Proair Respiclick] 2 PUFF) IH PRN (09:34)
[2019-05-19] MEDS ORDERED: NON-FORMULARY EACH (Budesonide/Formoterol Fumarate [Symbicort 160-4.5 Mcg Inhaler] 2 PUFF) IH SCH (10:00)
[2019-05-19] MEDS ORDERED: FLUCONAZOLE 200 MG 200 MG/100 ML BAG IV SCH (10:30)
[2019-05-19] MEDS: DOCUSATE SODIUM 100 MG CAP PO SCH ×2 (11:06→21:06)
[2019-05-19] MEDS: PANTOPRAZOLE 40 MG TAB PO SCH (11:06)
[2019-05-19] MEDS: HEPARIN 5,000 UNIT/1 ML VIAL SUB-Q SCH ×2 (11:06→21:05)
[2019-05-19] MEDS: NYSTATIN 500,000 UNIT/5 ML ORAL LIQD PO SCH ×4 (11:07→21:05)
--- NOTE | 2019-05-19 13:13 | Consultation ---
History of Present Illness - Reason for Consult Consult date: 05/19/19 SIRS and severe oropharyngeal candidiasis Requesting physician: JOSH BOWDEN - History of Present Illness The patient is a 58-year-old female with metastatic breast cancer s/p mastectomy and radiation therapy, last radiation was about a month ago, left hemiplegia and paraplegia, hypertension, sickle cell trait, spinal stenosis was admitted overnight with complaints of pain and soreness in her mouth going on for 4 days. She was afebrile but tachycardic so due to concern for SIRS, she was admitted. Per chart review, recently hospitalized at [facility] on 05/10 and discharged on 05/17 and underwent L thoracentesis and was diagnosed with chronic respiratory failure and discharged with home on oxygen. She was noted to have severe oropharyngeal thrush and hence ID was consulted. Patient is not interested in any oral anti-fungals saying that they don't work. Otherwise denies any complaints. Review of Systems: General: no fevers, chills or rigors HEENT: no new visual disturbance Respiratory: No cough, sputum, hemoptysis. No new or worsening shortness of breath. Cardiovascular: No chest pain, syncope Gastrointestinal: No nausea, vomiting or diarrhea Genitourinary: No dysuria or hematuria Musculoskeletal: No new or worsening neck pain or back pain Neurologic: No headaches, seizures Hematologic: No easy bruising or bleeding Endocrine: No night sweats or acute weight loss Skin: negative for rash, jaundice Psychiatric: No suicidal or homicidal ideation Past History Past Medical History: cancer (breast), COPD (on home 02), hypertension, other (Sickle cell, paraplegia) Past Surgical History: mastectomy (Left breast) Social history: Family history: no significant family history Medications and Allergies Allergies Allergy/AdvReac Type Severity Reaction Status Date / Time cephalexin monohydrate Allergy Hives Verified 11/26/13 10:25 [From [facility]] Home Medications Medication Instructions Recorded Confirmed Last Taken Type Albuterol Sulfate [Proair 2 puff IH Q6HR PRN 05/19/19 05/19/19 Unknown History Respiclick] Budesonide/Formoterol Fumarate 2 puff IH BID 05/19/19 05/19/19 Unknown History [Symbicort 160-4.5 Mcg Inhaler] Diflucan TAB 100 mg PO DAILY 05/19/19 05/19/19 Unknown History Nystatin [Nystatin SUSP] 10 ml PO QID 05/19/19 05/19/19 Unknown History Pantoprazole [Protonix] 40 mg PO QDAY 05/19/19 05/19/19 Unknown History levoFLOXacin [Levaquin] 750 mg PO QDAY 05/19/19 05/19/19 Unknown History Active Meds: Active Medications Acetaminophen (Tylenol) 650 mg PO Q4H PRN PRN Reason: Pain MILD(1-3)/Fever >100.5/CARRILLO Albuterol (Proventil) 2.5 mg IH Q3HRT PRN PRN Reason: Shortness Of Breath Arformoterol Tartrate (Brovana Nebu) 15 mcg IH Q12HRT [facility] Budesonide (Pulmicort) 0.5 mg IH Q12HRT [facility] Last Admin: 05/19/19 08:44 Dose: Not Given Documented by: Docusate Sodium (Colace) 100 mg PO BID [facility] Last Admin: 05/19/19 11:06 Dose: 100 mg Documented by: Heparin Sodium (Porcine) (Heparin) 5,000 unit SUB-Q Q12HR [facility] Last Admin: 05/19/19 11:06 Dose: 5,000 unit Documented by: Fluconazole (Diflucan) 200 mg in 100 mls @ 100 mls/hr IV Q24HR [facility]; Protocol Last Admin: 05/19/19 11:27 Dose: 100 mls/hr Documented by: Levofloxacin (Levaquin) 750 mg PO QDAY [facility] Nystatin (Nystatin) 1,000,000 unit PO QID [facility] Last Admin: 05/19/19 11:07 Dose: Not Given Documented by: Ondansetron HCl (Zofran) 4 mg IV Q8H PRN PRN Reason: Nausea And Vomiting Pantoprazole Sodium (Protonix) 40 mg PO QDAY [facility] Last Admin: 05/19/19 11:06 Dose: 40 mg Documented by: Sodium Chloride (Sodium Chloride Flush Syringe 10 Ml) 10 ml IV BID [facility] Last Admin: 05/19/19 11:07 Dose: 10 ml Documented by: Sodium Chloride (Sodium Chloride Flush Syringe 10 Ml) 10 ml IV PRN PRN PRN Reason: LINE FLUSH Physical Examination - Physical Exam Narrative exam: Constitutional: Alert, cooperative. No distress Head, Ears, Nose: Normocephalic, atraumatic. External ears, nose normal Eyes: Conjunctivae/corneas clear. No icterus. No ptosis. Neck: Supple, no meningeal signs Oral: severe thrush involving tongue, hard and soft palate Cardiovascular: S1, S2 normal. Respiratory: Good air entry, clear to auscultation bilaterally GI: Soft, non-tender; bowel sounds normal. No peritoneal signs Musculoskeletal: No pedal edema, no cyanosis. Skin: No rash or abscess Hem/Lymphatic: No palpable cervical or supraclavicular nodes. No lymphangitis Psych: Mood ok. Affect normal Neurological: Awake, alert, oriented. Left sided weakness - Constitutional Vitals: Vital Signs Temp Pulse Resp BP Pulse Ox 98.8 F 92 H 14 126/80 98 05/19/19 02:06 05/19/19 07:40 05/19/19 07:40 05/19/19 07:40 05/19/19 07:40 Temperature -Last 24 Hours Temperature 98.8 F Temperature 98.8 F Results - Labs CBC & Chem 7: 05/19/19 04:36 05/19/19 02:52 Labs: Abnormal lab results 05/19/19 05/19/19 05/19/19 Range/Units 02:52 02:52 02:52 RBC 5.04 H (3.65-5.03) M/mm3 Hgb 14.5 H (10.1-14.3) gm/dl Hct 44.6 H (30.3-42.9) % RDW 17.9 H (13.2-15.2) % Plt Count (140-440) K/mm3 Lymph % (Auto) 10.2 L (13.4-35.0) % Lymph # 0.9 L (1.2-5.4) K/mm3 Seg Neutrophils % 82.0 H (40.0-70.0) % PT (12.2-14.9) Sec. INR (0.87-1.13) APTT (24.2-36.6) Sec. D-Dimer 4442.30 H (0-234) ng/mlDDU POC ABG pO2 (80-105) Chloride 97.8 L (98-107) mmol/L Carbon Dioxide 21 L (22-30) mmol/L BUN 41 H (7-17) mg/dL Glucose 184 H (65-100) mg/dL Lactic Acid (0.7-2.0) mmol/L Magnesium (1.7-2.3) mg/dL Alkaline Phosphatase 165 H (35-129) units/L 05/19/19 05/19/19 05/19/19 Range/Units 02:52 02:52 03:10 RBC (3.65-5.03) M/mm3 Hgb (10.1-14.3) gm/dl Hct (30.3-42.9) % RDW (13.2-15.2) % Plt Count (140-440) K/mm3 Lymph % (Auto) (13.4-35.0) % Lymph # (1.2-5.4) K/mm3 Seg Neutrophils % (40.0-70.0) % PT (12.2-14.9) Sec. INR (0.87-1.13) APTT (24.2-36.6) Sec. D-Dimer (0-234) ng/mlDDU POC ABG pO2 51 L (80-105) Chloride (98-107) mmol/L Carbon Dioxide (22-30) mmol/L BUN (7-17) mg/dL Glucose (65-100) mg/dL Lactic Acid 2.40 H* (0.7-2.0) mmol/L Magnesium 2.90 H (1.7-2.3) mg/dL Alkaline Phosphatase (35-129) units/L 05/19/19 05/19/19 05/19/19 Range/Units 04:23 04:36 04:36 RBC (3.65-5.03) M/mm3 Hgb (10.1-14.3) gm/dl Hct (30.3-42.9) % RDW (13.2-15.2) % Plt Count 134 L (140-440) K/mm3 Lymph % (Auto) (13.4-35.0) % Lymph # (1.2-5.4) K/mm3 Seg Neutrophils % (40.0-70.0) % PT 11.2 L (12.2-14.9) Sec. INR 0.81 L (0.87-1.13) APTT 20.0 L (24.2-36.6) Sec. D-Dimer (0-234) ng/mlDDU POC ABG pO2 (80-105) Chloride (98-107) mmol/L Carbon Dioxide (22-30) mmol/L BUN (7-17) mg/dL Glucose (65-100) mg/dL Lactic Acid 2.50 H* (0.7-2.0) mmol/L Magnesium (1.7-2.3) mg/dL Alkaline Phosphatase (35-129) units/L - Imaging and Cardiology Chest x-ray: report reviewed, image reviewed (no pneumonia seen) CT scan - chest: report reviewed, image reviewed (Left sided effusion. Multiple pulmonary nodules ) Assessment and Plan Cultures: 05/19/2019 blood culture: In progress A/P: 58-year-old female with metastatic breast cancer s/p mastectomy and radiation therapy, last radiation was about a month ago, left hemiplegia and paraplegia, hypertension, sickle cell trait, spinal stenosis was admitted overnight with complaints of pain and soreness in her mouth admitted with: #Severe oropharyngeal candidiasis: Only going on for 4 days. Patient is absolutely not interested in PO anti-fungals stating they do not work. ?resistant Carrie. For now, will treat with high dose IV fluconazole. #Metastatic breast cancer with likely pulmonary metastases and malignant left pleural effusion #SIRS: no other infectious process identified. Avoid systemic abx since they can make thrush worse. CXR without pneumonia. No urinary symptoms, UA unremarkable. #Chronic respiratory failure: on oxygen. Recs: IV fluconazole 800 mg daily ordered. If no response, will consider micafungin. Avoid systemic abx since they can make thrush worse Arelis Glass MD, FACP [facility] C: [phone] O: [phone] F: [phone]
[2019-05-19] MEDS ORDERED: FLUCONAZOLE IV ONE (14:04)
--- NOTE | 2019-05-19 15:35 | Consultation ---
History of Present Illness Consult date: 05/19/19 Requesting physician: JOSH BOWDEN Reason for consult: hypoxemia, pleural effusion History of present illness: 58 y/o paraplegic with history of metastatic breast CA admitted with multiple complaints but found to have bilateral pulmonary nodules and left sided effusion seen on CT. Per the notes, patient had a thoracentesis done at [facility] just last week. She was just discharged from there on 05/17 Past History Past Medical History: cancer (breast), COPD (on home ), hypertension, other (Sickle cell, paraplegia) Past Surgical History: mastectomy (Left breast) Social history: Family history: no significant family history Medications and Allergies Allergies Allergy/AdvReac Type Severity Reaction Status Date / Time cephalexin monohydrate Allergy Hives Verified 11/26/13 10:25 [From [facility]] Home Medications Medication Instructions Recorded Confirmed Last Taken Type Albuterol Sulfate [Proair 2 puff IH Q6HR PRN 05/19/19 05/19/19 Unknown History Respiclick] Budesonide/Formoterol Fumarate 2 puff IH BID 05/19/19 05/19/19 Unknown History [Symbicort 160-4.5 Mcg Inhaler] Diflucan TAB 100 mg PO DAILY 05/19/19 05/19/19 Unknown History Nystatin [Nystatin SUSP] 10 ml PO QID 05/19/19 05/19/19 Unknown History Pantoprazole [Protonix] 40 mg PO QDAY 05/19/19 05/19/19 Unknown History levoFLOXacin [Levaquin] 750 mg PO QDAY 05/19/19 05/19/19 Unknown History Active Meds: Active Medications Acetaminophen (Tylenol) 650 mg PO Q4H PRN PRN Reason: Pain MILD(1-3)/Fever >100.5/CARRILLO Albuterol (Proventil) 2.5 mg IH Q3HRT PRN PRN Reason: Shortness Of Breath Arformoterol Tartrate (Brovana Nebu) 15 mcg IH Q12HRT [facility] Last Admin: 05/19/19 08:44 Dose: Not Given Documented by: Budesonide (Pulmicort) 0.5 mg IH Q12HRT [facility] Last Admin: 05/19/19 08:44 Dose: Not Given Documented by: Docusate Sodium (Colace) 100 mg PO BID [facility] Last Admin: 05/19/19 11:06 Dose: 100 mg Documented by: Heparin Sodium (Porcine) (Heparin) 5,000 unit SUB-Q Q12HR [facility] Last Admin: 05/19/19 11:06 Dose: 5,000 unit Documented by: Fluconazole 800 mg/ (Miscellaneous Information) 400 mls @ 100 mls/hr IV DAILY ONE; Protocol Stop: 05/19/19 18:03 Nystatin (Nystatin) 1,000,000 unit PO QID [facility] Last Admin: 05/19/19 11:07 Dose: Not Given Documented by: Ondansetron HCl (Zofran) 4 mg IV Q8H PRN PRN Reason: Nausea And Vomiting Pantoprazole Sodium (Protonix) 40 mg PO QDAY [facility] Last Admin: 05/19/19 11:06 Dose: 40 mg Documented by: Sodium Chloride (Sodium Chloride Flush Syringe 10 Ml) 10 ml IV BID [facility] Last Admin: 05/19/19 11:07 Dose: 10 ml Documented by: Sodium Chloride (Sodium Chloride Flush Syringe 10 Ml) 10 ml IV PRN PRN PRN Reason: LINE FLUSH Physical Examination Vital signs: Vital Signs Temp Pulse Resp BP Pulse Ox 98.8 F 123 H 22 135/111 88 05/19/19 02:06 05/19/19 02:06 05/19/19 02:06 05/19/19 02:06 05/19/19 02:06 Results - Laboratory Findings CBC and BMP: 05/19/19 04:36 05/19/19 02:52 ABG POC ABG pH 7.450 (7.35-7.45) 05/19/19 03:10 POC ABG pCO2 38.7 (35-45) 05/19/19 03:10 POC ABG pO2 51 (80-105) L 05/19/19 03:10 POC ABG HCO3 26.9 (22-26 mml/L) 05/19/19 03:10 POC ABG Total CO2 28 (23-27mmol/L) 05/19/19 03:10 POC ABG O2 Sat 88 05/19/19 03:10 PT/INR, D-dimer PT 11.2 Sec. (12.2-14.9) L 05/19/19 04:36 INR 0.81 (0.87-1.13) L 05/19/19 04:36 D-Dimer 4442.30 ng/mlDDU (0-234) H 05/19/19 02:52 Abnormal lab findings: Abnormal Labs 05/19/19 05/19/19 05/19/19 02:52 02:52 02:52 RBC 5.04 H Hgb 14.5 H Hct 44.6 H RDW 17.9 H Plt Count Lymph % (Auto) 10.2 L Lymph # 0.9 L Seg Neutrophils % 82.0 H PT INR APTT D-Dimer 4442.30 H POC ABG pO2 Chloride 97.8 L Carbon Dioxide 21 L BUN 41 H Glucose 184 H Lactic Acid Magnesium Alkaline Phosphatase 165 H 05/19/19 05/19/19 05/19/19 02:52 02:52 03:10 RBC Hgb Hct RDW Plt Count Lymph % (Auto) Lymph # Seg Neutrophils % PT INR APTT D-Dimer POC ABG pO2 51 L Chloride Carbon Dioxide BUN Glucose Lactic Acid 2.40 H* Magnesium 2.90 H Alkaline Phosphatase 05/19/19 05/19/19 05/19/19 04:23 04:36 04:36 RBC Hgb Hct RDW Plt Count 134 L Lymph % (Auto) Lymph # Seg Neutrophils % PT 11.2 L INR 0.81 L APTT 20.0 L D-Dimer POC ABG pO2 Chloride Carbon Dioxide BUN Glucose Lactic Acid 2.50 H* Magnesium Alkaline Phosphatase Assessment and Plan Unable to see actual images, but it sounds like this has been worked up or is currently being worked up. The patient herself, told me that her cancer has metastasized to her lungs. Hence the nodularity. If the effusion is malignant and she develops distress would need pleurx If no cyto was sent on the fluid from [facility], then can do a diagnostic to confirm malignancy as fluid needs to be in the space for pleurx placement Thank you for this consult. Will sign off. Call if questions.
[2019-05-20] MEDS: hydrALAZINE 20 MG/1 ML INJ IV PRN ×2 (04:44→18:27)
[2019-05-20] MEDS: ARFORMOTEROL 15 MCG/2 ML NEBU IH SCH ×2 (08:52→22:22)
[2019-05-20] MEDS: BUDESONIDE 0.5 MG/2 ML NEBU IH SCH ×2 (08:52→22:22)
[2019-05-20] MEDS: PANTOPRAZOLE 40 MG TAB PO SCH (09:18)
[2019-05-20] MEDS: HEPARIN 5,000 UNIT/1 ML VIAL SUB-Q SCH ×2 (09:18→21:48)
[2019-05-20] MEDS: NYSTATIN 500,000 UNIT/5 ML ORAL LIQD PO SCH ×4 (09:18→21:47)
[2019-05-20] MEDS: DOCUSATE SODIUM 100 MG CAP PO SCH ×2 (09:18→21:47)
[2019-05-20] MEDS ORDERED: levoFLOXacin 750 MG TAB PO SCH (10:00)
--- NOTE | 2019-05-20 10:39 | Progress Note ---
Assessment and Plan 58-year-old paraplegic -Wallisian female with history of hypertension, sickle cell trait, spinal stenosis, breast cancer s/p mastectomy with metastatic disease who presents to [facility] ED with complaints of mouth pain for the past 2 day s. Has extensive oral thrush. Discharged from [facility],05/17/2019. Declned all iv and oral meds until this evening when the pt's appealed to her SIRS -Heart rate >90 -RR>20 -SpO2 <97 -Cultures pending -On IV ABX - Oropharybngeal candidiasis with dysphagia IV Fluconazole per ID as pt decline oral meds Left pleural effusion -Seen on today's CT scan -Multiple pulmonary nodule seen on CT scan -History of pleural effusion -History of metastatic disease -Pulmonary consulted Lactic acidosis -Lactic acid on admission 2.5 -on IV Abx -on IVF -Continue to monitor Chronic hypoxic respiratory failure -Baseline home oxygen requirements 2L continuously -Currently on supplemental 2L NC with saturation of 96% -ABG 7.45/38.7/51/26.9 -Monitor saturations -Continue supplemental oxygen wean as tolerated Elevated d-dimer -at 4442.30 -CT angio Chest negative for PE COPD -Schedule Pulmicort, albuterol as needed DVT PPX -On Heparin Advance Directives: No VTE prophylaxis?: Chemical Plan of care discussed with patient/family: Yes Subjective Date of service: 05/20/19 Principal diagnosis: SIRS, oral thrush, metastatic breast cancer, spinal stenosi s, respr failure Interval history: Still having difficulty in swallowing. Denies any fever. Has shortness of breath. Objective - Exam Narrative Exam: Constitutional: Well-nourished well-developed. In no distress Head: Normocephalic atraumatic Eyes: Pupils are equal round and reactive to light Nose: No enlarged turbinates, no septal deviation. Mouth: Extensive oral thrush . Neck: Supple no thyromegaly. No bruit. No JVD Heart: Regular rate and rhythm, S1-S2 normal. No rubs murmurs or gallop Lungs: Equal breath sounds bilaterally. no rales or rhonchi Abdomen: Soft, nontender. Bowel sound are present. Extremities: No edema, no cyanosis, no clubbing. Neuro: Paraplegic Alert oriented Oriented x3. Skin: No rashes or hyperpigmented spots Musculoskeletal system: Paraplegic Hematological: No petechia or subcutanous hemorrhages. Immunological: No multiple septic spots on the skin Lymphatic: No generalized lymphadenopathy Psychiatry: Euthymic. Calm. - Constitutional Vitals: Vital Signs - 12hr 05/19/19 05/20/19 05/20/19 23:18 01:30 04:00 Temperature 98.0 F Pulse Rate 102 H 107 H Respiratory 20 Rate Blood Pressure 176/58 O2 Sat by Pulse 96 96 Oximetry 05/20/19 05/20/19 05/20/19 04:18 04:44 07:58 Temperature 98.0 F 98.1 F Pulse Rate 107 H 107 H Respiratory 18 18 Rate Blood Pressure 197/63 197/63 179/66 O2 Sat by Pulse 87 Oximetry - Labs CBC & Chem 7: 05/19/19 04:36 05/19/19 02:52 Labs: Abnormal lab results 05/19/19 05/20/19 Range/Units 21:33 08:05 POC Glucose 115 H 141 H (70-105)
[2019-05-20] MEDS: FLUCONAZOLE IV ONE ×2 (13:37→18:39)
[2019-05-21] MEDS: BUDESONIDE 0.5 MG/2 ML NEBU IH SCH ×2 (08:34→22:59)
[2019-05-21] MEDS: ARFORMOTEROL 15 MCG/2 ML NEBU IH SCH ×2 (08:34→22:59)
[2019-05-21 09:04] LABS: Basophils % (Auto) 0.4 % (0.0-1.8); Eosinophils % (Auto) 0.2 % (0.0-4.3); Hematocrit 41.5 % (30.3-42.9); Hemoglobin 13.4 gm/dl (10.1-14.3); Lymphocytes # (Auto) 0.8 K/mm3 (1.2-5.4); Lymphocytes % (Auto) 11.3 % (13.4-35.0); Mean Corpuscular HGB Conc 32 % (30-34); Mean Corpuscular Volume 89 fl (79-97); Monocytes # (Auto) 0.6 K/mm3 (0.0-0.8); Monocytes % (Auto) 8.7 % (0.0-7.3); Platelet Count 142 K/mm3 (140-440); Red Blood Count 4.64 M/mm3 (3.65-5.03)
[2019-05-21 09:33] LABS: Alanine Aminotransferase 34 units/L (7-56); Albumin 3.9 g/dL (3.9-5); BUN/Creatinine Ratio 24; Blood Urea Nitrogen 17 mg/dL (7-17); Calcium 9.3 mg/dL (8.4-10.2); Hemolysis Index 18
--- NOTE | 2019-05-21 10:35 | Consultation ---
History of Present Illness - Reason for Consult Consult date: 05/21/19 Past History Past Medical History: cancer (breast), COPD (on home 02), hypertension, other (Sickle cell, paraplegia) Past Surgical History: mastectomy (Left breast) Social history: Family history: no significant family history Medications and Allergies Allergies Allergy/AdvReac Type Severity Reaction Status Date / Time cephalexin monohydrate Allergy Hives Verified 11/26/13 10:25 [From Keflex] Home Medications Medication Instructions Recorded Confirmed Last Taken Type Albuterol Sulfate [Proair 2 puff IH Q6HR PRN 05/19/19 05/19/19 Unknown History Respiclick] Budesonide/Formoterol Fumarate 2 puff IH BID 05/19/19 05/19/19 Unknown History [Symbicort 160-4.5 Mcg Inhaler] Diflucan TAB 100 mg PO DAILY 05/19/19 05/19/19 Unknown History Nystatin [Nystatin SUSP] 10 ml PO QID 05/19/19 05/19/19 Unknown History Pantoprazole [Protonix] 40 mg PO QDAY 05/19/19 05/19/19 Unknown History levoFLOXacin [Levaquin] 750 mg PO QDAY 05/19/19 05/19/19 Unknown History Active Meds: Active Medications Acetaminophen (Tylenol) 650 mg PO Q4H PRN PRN Reason: Pain MILD(1-3)/Fever >100.5/CARRILLO Albuterol (Proventil) 2.5 mg IH Q3HRT PRN PRN Reason: Shortness Of Breath Arformoterol Tartrate (Brovana Nebu) 15 mcg IH Q12HRT [facility] Last Admin: 05/21/19 08:34 Dose: 15 mcg Documented by: Budesonide (Pulmicort) 0.5 mg IH Q12HRT [facility] Last Admin: 05/21/19 08:34 Dose: 0.5 mg Documented by: Docusate Sodium (Colace) 100 mg PO BID [facility] Last Admin: 05/20/19 21:47 Dose: 100 mg Documented by: Heparin Sodium (Porcine) (Heparin) 5,000 unit SUB-Q Q12HR [facility] Last Admin: 05/20/19 21:48 Dose: 5,000 unit Documented by: Hydralazine HCl (Apresoline) 10 mg IV Q4HR PRN PRN Reason: Blood Pressure Last Admin: 05/20/19 18:27 Dose: 10 mg Documented by: Nystatin (Nystatin) 1,000,000 unit PO QID [facility] Last Admin: 05/20/19 21:47 Dose: 1,000,000 unit Documented by: Ondansetron HCl (Zofran) 4 mg IV Q8H PRN PRN Reason: Nausea And Vomiting Pantoprazole Sodium (Protonix) 40 mg PO QDAY [facility] Last Admin: 05/20/19 09:18 Dose: Not Given Documented by: Sodium Chloride (Sodium Chloride Flush Syringe 10 Ml) 10 ml IV BID [facility] Last Admin: 05/20/19 21:48 Dose: 10 ml Documented by: Sodium Chloride (Sodium Chloride Flush Syringe 10 Ml) 10 ml IV PRN PRN PRN Reason: LINE FLUSH Last Admin: 05/20/19 04:44 Dose: 10 ml Documented by: Physical Examination - Constitutional Vitals: Vital Signs Temp Pulse Resp BP Pulse Ox 98.3 F 112 H 20 128/34 94 05/21/19 07:53 05/21/19 08:34 05/21/19 08:34 05/21/19 07:53 05/21/19 09:51 Temperature -Last 24 Hours Temperature 98.3 F Temperature 97.8 F Temperature 98.3 F Temperature 98.5 F Temperature 98.5 F Results - Labs CBC & Chem 7: 05/21/19 08:08 05/21/19 08:08 Labs: Abnormal lab results 05/20/19 05/20/19 05/20/19 Range/Units 12:11 16:05 21:28 RDW (13.2-15.2) % Lymph % (Auto) (13.4-35.0) % [place] % (Auto) (0.0-7.3) % Lymph # (1.2-5.4) K/mm3 Seg Neutrophils % (40.0-70.0) % Glucose (65-100) mg/dL POC Glucose 194 H 121 H 125 H (70-105) Alkaline Phosphatase (35-129) units/L 05/21/19 05/21/19 05/21/19 Range/Units 08:08 08:08 08:16 RDW 18.0 H (13.2-15.2) % Lymph % (Auto) 11.3 L (13.4-35.0) % [place] % (Auto) 8.7 H (0.0-7.3) % Lymph # 0.8 L (1.2-5.4) K/mm3 Seg Neutrophils % 79.4 H (40.0-70.0) % Glucose 141 H (65-100) mg/dL POC Glucose 165 H (70-105) Alkaline Phosphatase 174 H (35-129) units/L
--- NOTE | 2019-05-21 10:37 | Progress Note ---
Assessment and Plan Cultures: 05/19/2019 blood culture: In progress A/P: 58-year-old female with metastatic breast cancer s/p mastectomy and radiation therapy, last radiation was about a month ago, left hemiplegia and paraplegia, hypertension, sickle cell trait, spinal stenosis was admitted overnight with c omplaints of pain and soreness in her mouth admitted with: #Severe oropharyngeal candidiasis: Only going on for 4 days. Patient is absolutely not interested in PO anti-fungals stating they do not work. ?resistant Carrie. For now, will treat with high dose IV fluconazole. #Metastatic breast cancer with likely pulmonary metastases and malignant left pleural effusion #SIRS: no other infectious process identified. Avoid systemic abx since they can make thrush worse. CXR without pneumonia. No urinary symptoms, UA unremarkable. #Chronic respiratory failure: on oxygen. Recs: IV fluconazole 800 mg daily ordered. If no response, will consider micafungin. Avoid systemic abx since they can make thrush worse Thank you for the consult, will follow. [facility] ([facility]) M: [phone] O: [phone] F: [phone] Subjective Date of service: 05/21/19 Principal diagnosis: SIRS, oral thrush, metastatic breast cancer, spinal stenosis, respr failure Interval history: Ongoing mouth pain. Afebrile, normal white count Objective - Exam Narrative Exam: Constitutional: Alert, cooperative. No distress Head, Ears, Nose: Normocephalic, atraumatic. External ears, nose normal Eyes: Conjunctivae/corneas clear. No icterus. No ptosis. Neck: Supple, no meningeal signs Oral: severe thrush involving tongue, hard and soft palate Cardiovascular: S1, S2 normal. Respiratory: Good air entry, clear to auscultation bilaterally GI: Soft, non-tender; bowel sounds normal. No peritoneal signs Musculoskeletal: No pedal edema, no cyanosis. Skin: No rash or abscess Hem/Lymphatic: No palpable cervical or supraclavicular nodes. No lymphangitis Psych: Mood ok. Affect normal Neurological: Awake, alert, oriented. Left sided weakness - Constitutional Vitals: Vital Signs Temp Pulse Resp BP Pulse Ox 98.3 F 112 H 20 128/34 94 05/21/19 07:53 05/21/19 08:34 05/21/19 08:34 05/21/19 07:53 05/21/19 09:51 Temperature -Last 24 Hours Temperature 98.3 F Temperature 97.8 F Temperature 98.3 F Temperature 98.5 F Temperature 98.5 F - Labs CBC & Chem 7: 05/21/19 08:08 05/21/19 08:08 Labs: Abnormal lab results 05/20/19 05/20/19 05/20/19 Range/Units 12:11 16:05 21:28 RDW (13.2-15.2) % Lymph % (Auto) (13.4-35.0) % [place] % (Auto) (0.0-7.3) % Lymph # (1.2-5.4) K/mm3 Seg Neutrophils % (40.0-70.0) % Glucose (65-100) mg/dL POC Glucose 194 H 121 H 125 H (70-105) Alkaline Phosphatase (35-129) units/L 05/21/19 05/21/19 05/21/19 Range/Units 08:08 08:08 08:16 RDW 18.0 H (13.2-15.2) % Lymph % (Auto) 11.3 L (13.4-35.0) % [place] % (Auto) 8.7 H (0.0-7.3) % Lymph # 0.8 L (1.2-5.4) K/mm3 Seg Neutrophils % 79.4 H (40.0-70.0) % Glucose 141 H (65-100) mg/dL POC Glucose 165 H (70-105) Alkaline Phosphatase 174 H (35-129) units/L
[2019-05-21] MEDS: DOCUSATE SODIUM 100 MG CAP PO SCH ×2 (13:38→22:01)
[2019-05-21] MEDS: PANTOPRAZOLE 40 MG TAB PO SCH (13:38)
[2019-05-21] MEDS: NYSTATIN 500,000 UNIT/5 ML ORAL LIQD PO SCH ×3 (13:39→22:01)
[2019-05-21] MEDS: HEPARIN 5,000 UNIT/1 ML VIAL SUB-Q SCH ×2 (13:40→22:01)
--- NOTE | 2019-05-21 20:38 | Progress Note ---
Assessment and Plan 58-year-old paraplegic -Y[place]i female with history of hypertension, sickle cell trait, spinal stenosis, breast cancer s/p mastectomy with metastatic disease who presents to [facility] ED with complaints of mouth pain for the past 2 day s. Has extensive oral thrush. Discharged from [facility],05/17/2019. Declned all iv and oral meds until this evening when the pt's appealed to her SIRS -Heart rate >90 -RR>20 -SpO2 <97 -Cultures pending -On IV ABX - Oropharybngeal candidiasis with dysphagia IV Fluconazole per ID as pt decline oral meds -Breast cancer with pulmonary metastasis Following up with oncologist Left pleural effusion -Seen on today's CT scan -Multiple pulmonary nodule seen on CT scan -History of pleural effusion -History of metastatic disease -Pulmonary consulted Lactic acidosis -Lactic acid on admission 2.5 -on IV Abx -on IVF -Continue to monitor Chronic hypoxic respiratory failure -Baseline home oxygen requirements 2L continuously -Currently on supplemental 2L NC with saturation of 96% -ABG 7.45/38.7/51/26.9 -Monitor saturations -Continue supplemental oxygen wean as tolerated Elevated d-dimer -at 4442.30 -CT angio Chest negative for PE COPD -Bronchodilators Pulmicort, albuterol as needed DVT PPX -On Heparin Advance Directives: No VTE prophylaxis?: Chemical Plan of care discussed with patient/family: Yes Subjective Date of service: 05/21/19 Principal diagnosis: SIRS, oral thrush, metastatic breast cancer, spinal stenosis, respr failure Interval history: Still having difficulty in swallowing. Denies any fever. Has shortness of breath. Patient no longer decline in his IV medication and nursing care Objective - Exam Narrative Exam: Constitutional: Well-nourished well-developed. In no distress Head: Normocephalic atraumatic Eyes: Pupils are equal round and reactive to light Nose: No enlarged turbinates, no septal deviation. Mouth: Extensive oropharyngeal thrush . Neck: Supple no thyromegaly. No bruit. No JVD Heart: Regular rate and rhythm, S1-S2 normal. No rubs murmurs or gallop Lungs: Equal breath sounds bilaterally. no rales or rhonchi Abdomen: Soft, nontender. Bowel sound are present. Extremities: No edema, no cyanosis, no clubbing. Neuro: Paraplegic Alert oriented Oriented x3. Skin: No rashes or hyperpigmented spots Musculoskeletal system: Paraplegic Hematological: No petechia or subcutanous hemorrhages. Immunological: No multiple septic spots on the skin Lymphatic: No generalized lymphadenopathy Psychiatry: Euthymic. Calm. - Constitutional Vitals: Vital Signs - 12hr 05/21/19 05/21/19 05/21/19 09:51 10:00 12:00 Temperature Pulse Rate 74 Pulse Rate [ 110 H Apical] Respiratory Rate Blood Pressure O2 Sat by Pulse 94 96 Oximetry 05/21/19 05/21/19 12:46 15:55 Temperature 98.0 F 98.7 F Pulse Rate 111 H 116 H Pulse Rate [ Apical] Respiratory 18 18 Rate Blood Pressure 115/72 135/67 O2 Sat by Pulse 95 92 Oximetry - Labs CBC & Chem 7: 05/21/19 08:08 05/21/19 08:08 Labs: Abnormal lab results 05/20/19 05/21/19 05/21/19 Range/Units 21:28 08:08 08:08 RDW 18.0 H (13.2-15.2) % Lymph % (Auto) 11.3 L (13.4-35.0) % [place] % (Auto) 8.7 H (0.0-7.3) % Lymph # 0.8 L (1.2-5.4) K/mm3 Seg Neutrophils % 79.4 H (40.0-70.0) % Glucose 141 H (65-100) mg/dL POC Glucose 125 H (70-105) Alkaline Phosphatase 174 H (35-129) units/L 05/21/19 05/21/19 05/21/19 Range/Units 08:16 12:11 16:35 RDW (13.2-15.2) % Lymph % (Auto) (13.4-35.0) % [place] % (Auto) (0.0-7.3) % Lymph # (1.2-5.4) K/mm3 Seg Neutrophils % (40.0-70.0) % Glucose (65-100) mg/dL POC Glucose 165 H 235 H 149 H (70-105) Alkaline Phosphatase (35-129) units/L
[2019-05-22 05:16] LABS: Basophils % (Auto) 0.4 % (0.0-1.8); Eosinophils % (Auto) 0.4 % (0.0-4.3); Hemoglobin 13.2 gm/dl (10.1-14.3); Lymphocytes % (Auto) 14.9 % (13.4-35.0); Mean Corpuscular HGB Conc 33 % (30-34); Mean Corpuscular Volume 88 fl (79-97); Monocytes # (Auto) 0.8 K/mm3 (0.0-0.8); Platelet Count 142 K/mm3 (140-440); Red Blood Count 4.54 M/mm3 (3.65-5.03); Red Cell Distribution Width 17.7 % (13.2-15.2)
[2019-05-22 05:39] LABS: Alanine Aminotransferase 29 units/L (7-56); Albumin 3.5 g/dL (3.9-5); BUN/Creatinine Ratio 20; Blood Urea Nitrogen 14 mg/dL (7-17); Calcium 9.2 mg/dL (8.4-10.2); Hemolysis Index 0
[2019-05-22] MEDS: BUDESONIDE 0.5 MG/2 ML NEBU IH SCH ×2 (08:13→21:16)
[2019-05-22] MEDS: ARFORMOTEROL 15 MCG/2 ML NEBU IH SCH ×2 (08:13→21:16)
--- NOTE | 2019-05-22 10:14 | Progress Note ---
Assessment and Plan Cultures: 05/19/2019 blood culture: In progress A/P: 58-year-old female with metastatic breast cancer s/p mastectomy and radiation therapy, last radiation was about a month ago, left hemiplegia and paraplegia, hypertension, sickle cell trait, spinal stenosis was admitted overnight with c omplaints of pain and soreness in her mouth admitted with: #Severe oropharyngeal candidiasis: Only going on for 4 days. Patient is absolutely not interested in PO anti-fungals stating they do not work. ?resistant Carrie. For now, will treat with high dose IV fluconazole. #Metastatic breast cancer with likely pulmonary metastases and malignant left pleural effusion #SIRS: no other infectious process identified. Avoid systemic abx since they can make thrush worse. CXR without pneumonia. No urinary symptoms, UA unremarkable. #Chronic respiratory failure: on oxygen. Recs: IV fluconazole 800 mg daily ordered. Avoid systemic abx since they can make thrush worse Mouth appears improved - ok for discharge from ID perpective on 800mg fluconazole PO. She is insisting on receiving the same as she is getting IV. Would complete 2 weeks. Stop date: 06/02/2019 Thank you for the consult, will follow. [facility] ([facility]) M: [phone] O: [phone] F: [phone] Subjective Date of service: 05/22/19 Principal diagnosis: SIRS, oral thrush, metastatic breast cancer, spinal stenosis, respr failure Interval history: Improved. Afebrile, normal white count. Objective - Exam Narrative Exam: Constitutional: Alert, cooperative. No distress Head, Ears, Nose: Normocephalic, atraumatic. External ears, nose normal Eyes: Conjunctivae/corneas clear. No icterus. No ptosis. Neck: Supple, no meningeal signs Oral: severe thrush involving tongue, hard and soft palate Cardiovascular: S1, S2 normal. Respiratory: Good air entry, clear to auscultation bilaterally GI: Soft, non-tender; bowel sounds normal. No peritoneal signs Musculoskeletal: No pedal edema, no cyanosis. Skin: No rash or abscess Hem/Lymphatic: No palpable cervical or supraclavicular nodes. No lymphangitis Psych: Mood ok. Affect normal Neurological: Awake, alert, oriented. Left sided weakness - Constitutional Vitals: Vital Signs Temp Pulse Resp BP Pulse Ox 98.1 F 118 H 18 151/72 94 05/22/19 03:12 05/22/19 04:00 05/22/19 03:12 05/22/19 03:12 05/22/19 08:15 Temperature -Last 24 Hours Temperature 98.1 F Temperature 98.4 F Temperature 98.9 F Temperature 98.7 F Temperature 98.0 F - Labs CBC & Chem 7: 05/22/19 04:16 05/22/19 04:16 Labs: Abnormal lab results 05/21/19 05/21/19 05/21/19 Range/Units 12:11 16:35 21:18 RDW (13.2-15.2) % [place] % (Auto) (0.0-7.3) % Lymph # (1.2-5.4) K/mm3 Seg Neutrophils % (40.0-70.0) % [place] (98-107) mmol/L Glucose (65-100) mg/dL POC Glucose 235 H 149 H 192 H (70-105) Alkaline Phosphatase (35-129) units/L Albumin (3.9-5) g/dL 05/22/19 05/22/19 05/22/19 Range/Units 04:16 04:16 08:02 RDW 17.7 H (13.2-15.2) % [place] % (Auto) 11.0 H (0.0-7.3) % Lymph # 1.0 L (1.2-5.4) K/mm3 Seg Neutrophils % 73.3 H (40.0-70.0) % Chloride 97.7 L (98-107) mmol/L Glucose 161 H (65-100) mg/dL POC Glucose 172 H (70-105) Alkaline Phosphatase 177 H (35-129) units/L Albumin 3.5 L (3.9-5) g/dL
[2019-05-22] MEDS: NYSTATIN 500,000 UNIT/5 ML ORAL LIQD PO SCH ×4 (10:40→20:10)
[2019-05-22] MEDS: PANTOPRAZOLE 40 MG TAB PO SCH (10:40)
[2019-05-22] MEDS: DOCUSATE SODIUM 100 MG CAP PO SCH ×2 (10:40→21:55)
[2019-05-22] MEDS: HEPARIN 5,000 UNIT/1 ML VIAL SUB-Q SCH ×2 (10:50→21:49)
--- NOTE | 2019-05-22 17:04 | Progress Note ---
Assessment and Plan 58-year-old paraplegic -Thai female with history of hypertension, sickle cell trait, spinal stenosis, breast cancer s/p mastectomy with metastatic disease who presents to [facility] ED with complaints of mouth pain for the past 2 day s. Has extensive oral thrush. Discharged from [facility],05/17/2019. Declned all iv and oral meds until this evening when the pt's appealed to her SIRS -Heart rate >90 -RR>20 -SpO2 <97 -Cultures pending -On IV ABX - Oropharybngeal candidiasis with dysphagia IV Fluconazole per ID as pt decline oral meds -Breast cancer with pulmonary metastasis Following up with oncologist Left pleural effusion -Seen on today's CT scan -Multiple pulmonary nodule seen on CT scan -History of pleural effusion -History of metastatic disease -Pulmonary consulted Lactic acidosis -Lactic acid on admission 2.5 -on IV Abx -on IVF -Continue to monitor Chronic hypoxic respiratory failure -Baseline home oxygen requirements 2L continuously -Currently on supplemental 2L NC with saturation of 96% -ABG 7.45/38.7/51/26.9 -Monitor saturations -Continue supplemental oxygen wean as tolerated Elevated d-dimer -at 4442.30 -CT angio Chest negative for PE COPD -Bronchodilators Pulmicort, albuterol as needed DVT PPX -On Heparin Advance Directives: No VTE prophylaxis?: Chemical Plan of care discussed with patient/family: Yes Subjective Date of service: 05/22/19 Principal diagnosis: SIRS, oral thrush, metastatic breast cancer, spinal stenosis, respr failure Interval history: Still having difficulty in swallowing. Denies any fever. Has shortness of breath. Patient no longer decline in his IV medication and nursing care. However still declines by mouth medications Objective - Exam Narrative Exam: Constitutional: Well-nourished well-developed. In no distress Head: Normocephalic atraumatic Eyes: Pupils are equal round and reactive to light Nose: No enlarged turbinates, no septal deviation. Mouth: Extensive oropharyngeal thrush . Neck: Supple no thyromegaly. No bruit. No JVD Heart: Regular rate and rhythm, S1-S2 normal. No rubs murmurs or gallop Lungs: Equal breath sounds bilaterally. no rales or rhonchi Abdomen: Soft, nontender. Bowel sound are present. Extremities: No edema, no cyanosis, no clubbing. Neuro: Paraplegic Alert oriented Oriented x3. Skin: No rashes or hyperpigmented spots Musculoskeletal system: Paraplegic Hematological: No petechia or subcutanous hemorrhages. Immunological: No multiple septic spots on the skin Lymphatic: No generalized lymphadenopathy Psychiatry: Euthymic. Calm. - Constitutional Vitals: Vital Signs - 12hr 05/22/19 08:15 O2 Sat by Pulse 94 Oximetry - Labs CBC & Chem 7: 05/22/19 04:16 05/22/19 04:16 Labs: Abnormal lab results 05/21/19 05/22/19 05/22/19 Range/Units 21:18 04:16 04:16 RDW 17.7 H (13.2-15.2) % [place] % (Auto) 11.0 H (0.0-7.3) % Lymph # 1.0 L (1.2-5.4) K/mm3 Seg Neutrophils % 73.3 H (40.0-70.0) % Chloride 97.7 L (98-107) mmol/L Glucose 161 H (65-100) mg/dL POC Glucose 192 H (70-105) Alkaline Phosphatase 177 H (35-129) units/L Albumin 3.5 L (3.9-5) g/dL 05/22/19 05/22/19 05/22/19 Range/Units 08:02 12:09 16:07 RDW (13.2-15.2) % [place] % (Auto) (0.0-7.3) % Lymph # (1.2-5.4) K/mm3 Seg Neutrophils % (40.0-70.0) % Chloride (98-107) mmol/L Glucose (65-100) mg/dL POC Glucose 172 H 147 H 183 H (70-105) Alkaline Phosphatase (35-129) units/L Albumin (3.9-5) g/dL
[2019-05-23] MEDS: NYSTATIN 500,000 UNIT/5 ML ORAL LIQD PO SCH ×2 (00:26→10:02)
[2019-05-23] MEDS: HEPARIN 5,000 UNIT/1 ML VIAL SUB-Q SCH (10:02)
[2019-05-23] MEDS: DOCUSATE SODIUM 100 MG CAP PO SCH (10:02)
[2019-05-23] MEDS: PANTOPRAZOLE 40 MG TAB PO SCH ×2 (10:02→10:07)
[2019-05-23 10:23] VITALS: BP 112/69
--- NOTE | 2019-05-23 10:50 | Discharge Summary ---
Providers - Providers Date of Admission: 05/19/19 06:02 Attending physician: CINDY CHAVARRIA MD 05/19/19 09:30 Consult to Physician [CONS] Routine Comment: Consulting Provider: KELL DORSEY Physician Instructions: Reason For Exam: SIRS and severe michael-pharyngial candidiasis Primary care physician: FLASK MAKER Hospitalization Reason for admission: sirs Condition: Stable Hospital course: 58-year-old paraplegic -Jordanian female with history of hypertension, sickle cell trait, spinal stenosis, breast cancer s/p mastectomy with metastatic disease who presents to [facility] ED with complaints of mouth pain for the past 2 days. Has extensive oral thrush. Discharged from [facility],05/17/2019. Declned all iv and oral meds until this evening when the pt's appealed to her * patient today requesting to be discharge and will take oral medication on discharge * Pt declined treatment of abx, advised to follow with SIRS - Oropharybngeal candidiasis with dysphagia IV Fluconazole per ID as pt decline oral meds -Breast cancer with pulmonary metastasis Following up with oncologist Left pleural effusion -Seen on today's CT scan -Multiple pulmonary nodule seen on CT scan -History of pleural effusion -History of metastatic disease Lactic acidosis -Lactic acid on admission 2.5 -on IV Abx -on IVF Chronic hypoxic respiratory failure -Baseline home oxygen requirements 2L continuously -Currently on supplemental 2L NC with saturation of 96% Elevated d-dimer -at 4442.30 -CT angio Chest negative for PE COPD -Bronchodilators Pulmicort, albuterol as needed Disposition: DC-01 TO HOME OR SELFCARE Time spent for discharge: 35 mins Core Measure Documentation - Palliative Care Palliative Care/ Comfort Measures: Not Applicable - Core Measures Any of the following diagnoses?: none Exam - Physical Exam Narrative exam: Constitutional: Alert, cooperative. No distress, morbidly obese. Head, Ears, Nose: Normocephalic, atraumatic. External ears, nose normal Eyes: Conjunctivae/corneas clear. No icterus. No ptosis. Neck: Supple, no meningeal signs Oral: severe thrush involving tongue, hard and soft palate Cardiovascular: S1, S2 normal. Respiratory: Good air entry, clear to auscultation bilaterally GI: Soft, non-tender; bowel sounds normal. No peritoneal signs Musculoskeletal: No pedal edema, no cyanosis. Skin: No rash or abscess Hem/Lymphatic: No palpable cervical or supraclavicular nodes. No lymphangitis Psych: Mood ok. Affect normal Neurological: Awake, alert, oriented. Left sided weakness - Constitutional Vitals: Temp Pulse Resp BP Pulse Ox 98.2 F 119 H 18 112/69 89 05/23/19 08:41 05/23/19 08:41 05/23/19 08:41 05/23/19 08:41 05/23/19 08:41 Plan Activity: advance as tolerated, fall precautions Diet: low fat Follow up with: PRIMARY CARE, [Primary Care Provider] - 3-5 Days Prescriptions: Fluconazole [Diflucan TAB] 800 mg PO QDAY #40 tablet
== END 2019-05-23 13:14 | disposition home or self-care (01) | DRG 157 ==
LOC: SUATTDRO 01:43 → ED 01:43 → 4A 06:02
PROVIDERS: ADMIT Internal Medicine; ATTEND Internal Medicine
PROC: 4A033R1 Measurement of Arterial Saturation, Peripheral, Percutaneous Approach (ICD-10-PCS; principal; 2019-05-19)
DX: B37.0 Candidal stomatitis (principal); J96.21 Acute and chronic respiratory failure with hypoxia; J90 Pleural effusion, not elsewhere classified; R65.10 Systemic inflammatory response syndrome (SIRS) of non-infectious origin without acute organ dysfunction; E87.2 Acidosis; I10 Essential (primary) hypertension; R13.10 Dysphagia, unspecified; R91.8 Other nonspecific abnormal finding of lung field; J44.9 Chronic obstructive pulmonary disease, unspecified; Z99.81 Dependence on supplemental oxygen; Z90.12 Acquired absence of left breast and nipple; Z79.899 Other long term (current) drug therapy
CPT/HCPCS: 36415; 71045; 71275; 80053; 81001; 82140; 82550; 82803; 82962; 83735; 84443; 84484; 85014; 85018; 85025; 85049; 85379; 85610; 85730; 87040; 87086; 87116; 93005; 93010; 94640; 94760; 96365; G0378; J0360; J1450; J1644; J1956; J7030; Q9967